=== PATIENT | female | born 1970 | race Caucasian/White ===

== ENCOUNTER 2022-11-26 14:33 | Outpatient (CLI) | payer OTHER | END 2022-11-26 18:58 | disposition home or self-care (01) | LOC: SMA 14:33 | DX: N63.42 Unspecified lump in left breast, subareolar (principal); R92.8 Other abnormal and inconclusive findings on diagnostic imaging of breast | CPT/HCPCS: 77066 ==

== ENCOUNTER 2023-06-03 08:52 | Outpatient (CLI) | payer OTHER ==
[2023-06-03 10:54] LABS: HEMOGLOBIN A1C 5.47 % (<5.7)
[2023-06-03 10:57] LABS: BASOPHILS # (AUTO) 0.1 K/uL (0.0-0.2); EOSINOPHILS # (AUTO) 0.2 K/uL (0.0-0.4); EOSINOPHILS % (AUTO) 3.3 % (0.0-4.0); HEMATOCRIT 38.5 % (36-48); LYMPHOCYTES % (AUTO) 37.8 % (20.5-51.5); MEAN CORPUSCULAR HEMOGLOBIN 30 pg (27-31); MEAN CORPUSCULAR HGB CONC 34 % (32-36); MEAN CORPUSCULAR VOLUME 87 fL (79.0-98.0); MONOCYTES # (AUTO) 0.4 K/uL (0.0-1.0); MONOCYTES % (AUTO) 7.6 % (1.7-9.3); NEUTROPHILS # (AUTO) 2.6 K/uL (1.8-7.7); NEUTROPHILS % (AUTO) 50.3 % (40.0-70.0); PLATELET COUNT (AUTO) 284 K/uL (130-430); RED BLOOD CELL COUNT(AUTO) 4.41 MIL/uL (4.2-6.2); RED CELL DISTRIBUTION WIDTH 13.5 % (9.0-15.0); WHITE BLOOD COUNT (AUTO) 5.2 K/uL (4.8-10.8)
[2023-06-03 11:17] LABS: ALBUMIN 3.8 g/dL (3.4-4.8); CREATININE 0.74 mg/dL (0.55-1.30); FREE T4 (FREE THYROXINE) 0.9 ng/dL (0.6-1.6); POTASSIUM 4.4 mmol/L (3.5-5.1); THYROID STIMULATING HORMONE 1.53 uIu/mL (0.34-4.82); TOTAL BILIRUBIN 0.3 mg/dL (0.0-1.0); TOTAL PROTEIN, SERUM 7.3 g/dL (6.4-8.3)
== END 2023-06-03 20:43 | disposition home or self-care (01) ==
LOC: SLB 08:52
DX: Z13.1 Encounter for screening for diabetes mellitus (principal); Z13.9 Encounter for screening, unspecified; Z13.220 Encounter for screening for lipoid disorders; E55.9 Vitamin D deficiency, unspecified; Z13.29 Encounter for screening for other suspected endocrine disorder
CPT/HCPCS: 36415; 80053; 80061; 82306; 83037; 84439; 84443; 85025